=== PATIENT | male | born 1965 | race Caucasian/White ===

== ENCOUNTER 2025-05-01 09:19 | Emergency (ER) | payer OTHER ==
[~2025-05-01] VITALS: Ht 162.6 cm; Wt 100.0 kg
[2025-05-01 09:26] VITALS: O2SAT 98
[2025-05-01] MEDS ORDERED: DICL100G46 TP (10:03)
[2025-05-01] MEDS ORDERED: CEL200 MT (10:03)
[2025-05-01 10:18] VITALS: BP 148/81; PULSE 87; RESP 16; TEMP 36.7; O2SAT 99
== END 2025-05-01 10:20 | disposition home or self-care (01) ==
LOC: ER 09:19
DX: M17.11 Unilateral primary osteoarthritis, right knee (principal); Z98.890 Other specified postprocedural states; Z79.1 Long term (current) use of non-steroidal anti-inflammatories (NSAID)
CPT/HCPCS: 73562; 99283